=== PATIENT | female | born 2000 | race African-American/Black ===

== ENCOUNTER 2022-08-24 13:32 | Emergency (ER) | payer MEDICAID ==
[~2022-08-24] VITALS: Ht 162.6 cm; Wt 59.0 kg
--- NOTE | 2022-08-24 13:53 | ED Lower Extremity ---
General Stated Complaint: LACERATION ON RT FOOT/ANKLE Source: patient Exam Limitations: no limitations History of Present Illness Date Seen by Provider: Aug 24, 2022 Time Seen by Provider: 13:48 Initial Comments Patient is a 22-year-old female presents ED with a laceration to the dorsum side of her left ankle. She states last night she dropped a glass cup when it broke resulting in a laceration to the dorsum side of her right ankle. This occurred around 2:00 this morning. She cleaned the area with water and hydrogen peroxide. She covered the area. She denies of any pain. She did not note any glass in the wound. No active bleeding. Normal active range of motion of the ankle and digits of her right foot. Not up-to-date on her tetanus and refused tetanus shot. Allergies and Home Medications Patient Home Medication List Home Medication List Reviewed: Yes Review of Systems Constitutional: No chills, No diaphoresis, No malaise, No weakness EENTM: No ear pain, No blurred vision, No double vision, No mouth pain, No mouth swelling Respiratory: No cough, No dyspnea on exertion Cardiovascular: No chest pain Gastrointestinal: No abdominal pain, No diarrhea, No nausea, No vomiting Genitourinary: No decreased output, No discharge Musculoskeletal: No back pain, No joint swelling, No muscle pain, No neck pain Skin: change in color, other (Laceration to right dorsum ankle) All Other Systems Reviewed Negative Unless Noted: Yes Physical Exam Vital Signs Vital Signs - First Documented 08/24/22 08/24/22 13:42 13:59 Temp 36.2 Pulse 63 Resp 19 B/P (MAP) 137/75 (95) Pulse Ox 100 O2 Delivery Room Air Capillary Refill : Height, Weight, BMI Height: '" Weight: lbs. oz. kg; BMI Method: General Appearance: WD/WN, no apparent distress HEENT: PERRL/EOMI, normal ENT inspection, TMs normal, pharynx normal Neck: non-tender, full range of motion, supple, normal inspection Cardiovascular: regular rate, rhythm, no edema, no gallop Respiratory: chest non-tender, lungs clear, normal breath sounds, no respiratory distress, no accessory muscle use Gastrointestinal: normal bowel sounds, non tender, soft, no organomegaly Back: normal inspection, no CVA tenderness Hips: bilateral hip non-tender, bilateral hip normal inspection, bilateral hip normal range of motion Ankles: right ankle normal range of motion, right ankle abrasions/lacerations (Dime size skin avulsion to right dorsum ankle. 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 Adipose involvement. No foreign body.) Progress/Results/Core Measures Results/Orders Vital Signs/I&O 08/24/22 08/24/22 13:42 13:59 Temp 36.2 36.3 Pulse 63 71 Resp 19 18 B/P (MAP) 137/75 (95) 129/68 Pulse Ox 100 O2 Delivery Room Air Room Air Departure Communication (PCP) Patient has a dime size skin avulsion, laceration to the right dorsum ankle. No obvious foreign body. Wound is clean. Palpated without evidence of any piece of glass. If a small piece of glass is left in this area it will eventually work itself out. This was discussed with patient. I was not able to suture secondary to the skin avulsion. Will allow the area to heal by secondary intention. Discussed Neosporin and wound care. Refused tetanus shot. Area was cleaned with normal saline and soap here. Return precautions were discussed with patient Impression Primary Impression: Laceration Disposition: 01 HOME, SELF-CARE Condition: Stable Departure-Patient Inst. Decision time for Depature: 13:51 Referrals: NO,LOCAL PHYSICIAN (PCP) Primary Care Physician [facility] – [place], [place] Patient Instructions: Wound Care (DC) Add. Discharge Instructions: No sutures needed. Keep the area clean with soap and water. Neosporin topical twice a day. Keep it covered as long as it is exposed. If any worsening symptoms such as redness, swelling, purulent drainage to return back to ED. DAVIE CASSIDY Aug 24, 2022 13:52
[2022-08-24 13:59] VITALS: BP 129/68
== END 2022-08-24 13:59 | disposition home or self-care (01) ==
LOC: ER 13:37
DX: S91.011A Laceration without foreign body, right ankle, initial encounter (principal); Z28.310 Unvaccinated for COVID-19; W25.XXXA Contact with sharp glass, initial encounter